=== PATIENT | female | born 1970 | race Caucasian/White ===

== ENCOUNTER 2016-02-19 16:23 | Outpatient (RCR) | payer OTHER ==
[~2016-02-19] VITALS: Ht 157.5 cm; Wt 102.5 kg
[~2016-02-19 16:23] MED LIST: IRON SUCROSE IV ONE; SODIUM CHLORIDE FLUSH 3 ML SYR IV PRN; SODIUM CHLORIDE IV ONE
[2016-02-21] MEDS ORDERED: SODIUM CHLORIDE IV ONE (16:00)
[2016-02-21] MEDS ORDERED: IRON SUCROSE IV ONE (16:00)
[2016-02-23] MEDS ORDERED: SODIUM CHLORIDE IV ONE (13:20)
[2016-02-23] MEDS ORDERED: IRON SUCROSE IV ONE (13:20)
[2016-02-23 16:46] VITALS: BP 118/75
== END 2016-05-19 | disposition home or self-care (01) ==
LOC: EUOP 02-21 16:11
PROVIDERS: ATTEND Internal Medicine
DX: D64.9 Anemia, unspecified (principal)
CPT/HCPCS: 96365; J1756; J7050; 36000

== ENCOUNTER → 2016-04-23 | Outpatient (CLI) | payer OTHER ==
[~2016-04-23] MED LIST changes: +BALS750C7 PO; +CETI10TA20 PO; +HYDR-3702 PO; +HYOS0.1283 SL; -IRON SUCROSE IV ONE; +LACT1CAP8 PO; +MESA0.372 PO; +META800T PO; +PANT40TA3 PO; +PARO30TA74 PO; -SODIUM CHLORIDE FLUSH 3 ML SYR IV PRN; -SODIUM CHLORIDE IV ONE; +SPRN25T PO; +VIT B 12; +VITAMIN B 6 PO; +ZOLP5TAB PO
== END ==
LOC: LAB 08:34
PROVIDERS: ATTEND Internal Medicine
DX: R10.11 Right upper quadrant pain (principal); K50.10 Crohn's disease of large intestine without complications; E61.1 Iron deficiency; Z13.220 Encounter for screening for lipoid disorders; R79.89 Other specified abnormal findings of blood chemistry
CPT/HCPCS: 36415; 80061; 82306; 82728; 84443

== ENCOUNTER → 2016-05-07 | Outpatient (CLI) | payer OTHER | LOC: RAD 13:05 | PROVIDERS: ATTEND Obstetrics & Gynecology | DX: Z12.31 Encounter for screening mammogram for malignant neoplasm of breast (principal) ==

== ENCOUNTER 2016-05-23 16:09 | Outpatient (RCR) | payer OTHER ==
[~2016-05-23] VITALS: Ht 157.5 cm; Wt 102.5 kg
[~2016-05-23 16:09] MED LIST changes: +NS FLUSH 3 ML PRN IV
[2016-05-23] MEDS ORDERED: SODIUM CHLORIDE IV ONE (16:10)
[2016-05-23] MEDS ORDERED: IRON SUCROSE IV ONE (16:10)
[2016-05-28] MEDS ORDERED: IRON SUCROSE IV ONE (14:40)
[2016-05-28] MEDS ORDERED: SODIUM CHLORIDE IV ONE (14:40)
[2016-05-28] MEDS: NS FLUSH 10 ML PRN IV (16:51)
[2016-05-29] MEDS ORDERED: IRON SUCROSE IV ONE (16:15)
[2016-05-29] MEDS ORDERED: SODIUM CHLORIDE IV ONE (16:15)
[2016-05-29] MEDS: NS FLUSH 10 ML PRN IV (17:00)
[2016-08-20] MEDS ORDERED: IRON SUCROSE IV ONE (10:00)
[2016-08-20] MEDS ORDERED: SODIUM CHLORIDE IV ONE (10:00)
[2016-08-20] MEDS: NS FLUSH 10 ML PRN IV (10:08)
[2016-08-21] MEDS ORDERED: IRON SUCROSE IV ONE (16:00)
[2016-08-21] MEDS ORDERED: SODIUM CHLORIDE IV ONE (16:00)
[2016-08-21 16:15] VITALS: BP 116/81
--- NOTE | 2016-08-21 16:25 | NUR ---
IV started [facility] X1 attempt c aseptic technique
[2016-08-21] MEDS: NS FLUSH 10 ML PRN IV (16:31)
--- NOTE | 2016-08-21 16:35 | NUR ---
Iron sucrose to infuse @ 200 mL/hr per pump
[2016-08-21] MEDS ORDERED: NS FLUSH 3 ML PRN IV (16:50)
[2016-08-21] MEDS ORDERED: NS FLUSH 10 ML PRN IV (16:50)
--- NOTE | 2016-08-21 17:04 | NUR ---
IV dc'd from [facility] - pressure held until bleeding stopped - drsg applied - dismissed @ [id number]
--- NOTE | 2016-08-21 17:05 | NUR ---
Dismiss ambulatory to home
--- NOTE | 2016-08-21 17:32 | NUR ---
Admit to room 341 - ambulatory
== END 2016-08-21 | disposition home or self-care (01) ==
LOC: EUOP 05-28 16:13 → ICU 08-21 16:11
PROVIDERS: ATTEND Internal Medicine
DX: D64.9 Anemia, unspecified (principal); D50.8 Other iron deficiency anemias
CPT/HCPCS: 96365; J1756; J7050; 36000

== ENCOUNTER → 2016-08-19 | Outpatient (CLI) | payer OTHER ==
[~2016-08-19] MED LIST changes: -NS FLUSH 3 ML PRN IV
[2016-08-19 16:23] LABS: BASOPHILS % (AUTO) 0 % (0-2); EOSINOPHILS # (AUTO) 0.5 10^3uL; EOSINOPHILS % (AUTO) 4 % (0-4); LYMPHOCYTES # (AUTO) 2.2 X10^3; MEAN CORPUSCULAR HEMOGLOBIN 28.5 PG (26.0-34.0); MEAN CORPUSCULAR HGB CONC 33.5 g/dL (31.0-37.0); MEAN CORPUSCULAR VOLUME 85 FL (80-100); MEAN PLATELET VOLUME 9.2 FL (6.0-9.5); MONOCYTES # (AUTO) 0.6 X10^3; MONOCYTES % (AUTO) 6 % (3-11); NEUTROPHILS % (AUTO) 71 % (51-67); PLATELET COUNT 374 10^3uL (150-450); WHITE BLOOD COUNT 11.34 10^3uL (4.0-11.0)
== END ==
LOC: LAB 16:10
PROVIDERS: ATTEND Internal Medicine
DX: E61.1 Iron deficiency (principal)
CPT/HCPCS: 82728; 85025

== ENCOUNTER 2016-08-22 16:22 | Outpatient (RCR) | payer OTHER ==
[~2016-08-22] VITALS: Ht 157.5 cm; Wt 117.9 kg
[~2016-08-22 16:22] MED LIST changes: +IRON SUCROSE IV ONE; +NS FLUSH 10 ML PRN IV; +NS FLUSH 3 ML PRN IV; +SODIUM CHLORIDE IV ONE
[2016-08-22 16:51] VITALS: BP 128/71
== END 2016-09-11 18:24 | disposition home or self-care (01) ==
LOC: EUOP 16:22
PROVIDERS: ATTEND Internal Medicine
DX: D50.8 Other iron deficiency anemias (principal)
CPT/HCPCS: 96365; J1756; J7050; 36000